=== PATIENT | male | born 1955 | race Caucasian/White ===

== ENCOUNTER 2017-05-29 17:41 | Emergency (ER) | payer OTHER ==
[2017-05-29 17:52] VITALS: BP 136/74
[2017-05-29] MEDS ORDERED: Ketorolac INJ* 60 MG/2 ML VIAL IM ONE (18:20)
--- NOTE | 2017-05-29 19:24 | UC ---
Back Pain HPI - HPI Summary HPI Summary: LIFTING BOX THIS AFTERNOON. FELT TWINGE IN LOW BACK. PAIN RADIATES TO RIGHT HIP AND DOWN LEG AT FIRST. NO RADIATING TO BOTH SIDES OF LOW BACK. HAS HAPPENED BEFORE 2 YEARS AGO. NO LOSS OF CONTROL OF BLADDER OR BOWELS. NO HISTORY OF KIDNEY STONES. ABLE TO BEAR WEIGHT. - History of Current Complaint Chief Complaint: UCBackPain Stated Complaint: BACK PAIN Time Seen by Provider: 05/29/17 18:04 Hx Obtained From: Patient Onset/Duration: Sudden Onset, Lasting Hours Timing: Lasting Hours Severity Initially: Moderate Severity Currently: Moderate Pain Intensity: 6 Pain Scale Used: 0-10 Numeric Back Pain: Is Discrete @ - LOW BACK, Radiates To - RIGHT HIP, RIGHT LEG, LEFT LOW BACK Character: Sharp, Dull, Aching, Spasmodic Aggravating Factor(s): Movement, Lifting, Bending Alleviating Factor(s): Position Associated Signs And Symptoms: Positive: Negative. Negative: Swelling, Redness , Bruising, Weakness, Numbness, Tingling, Flank Pain, Bladder Incontinence, Bowel Incontinence - Risk Factors AAA Risk Factors: Negative TAD Risk Factors: Negative Cauda Equina Risk Factors: Negative Epidural Abscess Risk Factors: Negative - Allergies/Home Medications Allergies/Adverse Reactions: Allergies Allergy/AdvReac Type Severity Reaction Status Date / Time Ciprofloxacin [From Cipro] Allergy Fatigue Verified 05/29/17 17:53 Home Medications: Home Medications Allopurinol 1 tab PO DAILY 05/29/17 [History Confirmed 05/29/17] Crestor 1 tab PO DAILY 05/29/17 [History Confirmed 05/29/17] Levothyroxine Sodium [Synthroid] 1 tab PO DAILY 05/29/17 [History Confirmed 07/05] Lisdexamfetamine Dimesylate [Vyvanse] 1 tab PO DAILY 05/29/17 [History Confirmed 05/29/17] buPROPion SR TAB* [Wellbutrin SR TAB*] 1 tab PO DAILY 05/29/17 [History Confirmed 05/29/17] PMH/Surg Hx/FS Hx/Imm Hx Previously Healthy: Yes - Surgical History Surgical History: Yes Surgery Procedure, Year, and Place: right thumb joint replacement - Family History Known Family History: Negative: Renal Disease - Social History Occupation: Employed Full-time Lives: With Family Alcohol Use: Occasionally Substance Use Type: None Smoking Status (MU): Former Smoker When Did the Patient Quit Smoking/Using Tobacco: 10 years ago Review of Systems Constitutional: Negative Skin: Negative Eyes: Negative ENT: Negative Respiratory: Negative Cardiovascular: Negative Gastrointestinal: Negative Genitourinary: Negative Motor: Negative Musculoskeletal: Arthralgia, Myalgia Neurological: Negative Psychological: Negative Is Patient Immunocompromised?: No All Other Systems Reviewed And Are Negative: Yes Physical Exam Triage Information Reviewed: Yes Appearance: Well-Appearing, Well-Nourished, Pain Distress Vital Signs: Initial Vital Signs Temp 96.5 F 05/29/17 17:47 Pulse 94 05/29/17 17:47 Resp 18 05/29/17 17:47 BP 136/74 05/29/17 17:47 Pulse Ox 100 05/29/17 17:47 Eye Exam: Normal ENT Exam: Normal ENT: Positive: Normal ENT inspection, Hearing grossly normal, TMs normal Dental Exam: Normal Neck exam: Normal Respiratory Exam: Normal Respiratory: Positive: Chest non-tender, Lungs clear, Normal breath sounds, No respiratory distress, No accessory muscle use Cardiovascular Exam: Normal Cardiovascular: Positive: RRR, No Murmur, Pulses Normal, Brisk Capillary Refill Abdominal Exam: Normal Musculoskeletal: Positive: ROM Intact, No Edema, Strength Limited @ - BILATERAL POSITIVE STRAIGHT LEG RAISE 40 DEGREES Neurological Exam: Normal Psychological Exam: Normal Psychological: Positive: Normal Response To Family Skin Exam: Normal Back Pain Course/Dx - Differential Dx/Diagnosis Differential Diagnosis/HQI/PQRI: Strain, Sprain Provider Diagnoses: ACUTE LOW BACK PAIN, SCIATICA Discharge - Discharge Plan Condition: Stable Disposition: HOME Prescriptions: Carisoprodol TAB* [Soma TAB*] 350 mg PO TID PRN #12 tab MDD three tabs PRN Reason: Spasms Hydrocodone-Acetaminophen [[place] 5-325 mg] 1 tab PO Q8HR #12 tab MDD three tabs Patient Education Materials: Acute Low Back Pain (ED), Muscle Spasm (ED) Forms: *Work Release Referrals: Mckinley Lindsey MD [Primary Care Provider] - Additional Instructions: PHYSICAL THERAPY REFERRAL: You have been prescribed physical therapy. Treatments may include stretching, exercise, application of heat or cold, and other modalities. After an injury, PT can reduce swelling and pain. In recovery, PT is used to restore mobility and strength. Your specific treatment goals are: Reduction of Swelling (EGS, US, ice as needed) ___x__ Pain Reduction (EGS, US, ice as needed) __x___ TENS Pack Fitting and Instruction Wound Hydrotherapy __x___ Preservation of Mobility ___x__ Uatsdin of Mobility __x___ Strength Uatsdin __x___ Work or Sports Hardening This instruction sheet also serves as your PHYSICAL THERAPY REFERRAL! Please take it with you to the therapist, so he/she will be aware of your diagnosis and treatment plan. You may see the physical therapist of your choice for these treatments, but may wish to check with your insurance to be sure the provider you select is covered. It's important to see the doctor to whom you have been referred for follow up.
== END 2017-05-29 19:01 | disposition home or self-care (01) ==
LOC: UCEAST 17:41
DX: M54.30 Sciatica, unspecified side (principal); M54.5 Low back pain
CPT/HCPCS: 81003; 96372; 99202; G0463; J1885